=== PATIENT | female | born 1945 | race African-American/Black ===

== ENCOUNTER → 2018-03-21 | Outpatient (CLI) | payer OTHER ==
[2018-03-21 09:40] LABS: CALCIUM 9.6 mg/dL (8.5-10.1); CREATININE 1.3 mg/dL (0.6-1.0); POTASSIUM 4.1 mmol/L (3.5-5.1)
== END ==
LOC: CAT 08:41
PROVIDERS: Internal Medicine Cardiovascular Disease
DX: Z01.812 Encounter for preprocedural laboratory examination (principal); I71.01 Dissection of thoracic aorta; I71.4 Abdominal aortic aneurysm, without rupture

== ENCOUNTER 2018-09-04 05:59 | Inpatient (IN) | payer OTHER ==
[~2018-09-04] VITALS: Ht 162.6 cm; Wt 87.1 kg
[~2018-09-04 05:59] MED LIST: ANORO ELLIPTA1 EACH INH; ASPIR 8181 MG PO; ATORVASTATIN CA40 MG PO; CENTRUM SILVER1 EAC4 PO; IBUPROFEN 200200 M1 PO; IRON325 M1 PO; STOOL SOFTENER100 M1 PO; TOPROL XL25 MG PO; ZESTORETIC 10-1 EACH PO
[2018-09-29 10:19] LABS: ABSOLUTE NEUTROPHILS 5.3 thou/uL (1.4-8.2); EOSINOPHILS 2.1 % (0.0-3.0); HEMATOCRIT 34.6 % (37.0-47.0); HEMOGLOBIN 11.2 gm/dL (12.0-15.0); LYMPHOCYTES 24.4 % (24.0-44.0); MCH 26.1 pg (26.0-34.0); MCHC 32.3 g/dL (28.0-37.0); MCV 80.8 fL (80.0-100.0); MONOCYTES 5.6 % (1.0-8.0); PLATELET COUNT 265 thou/uL (150-400); POLYS 66.9 % (36.0-66.0); RBC 4.29 mil/uL (4.20-5.00); RDW 17.3 % (10.5-14.5); WBC 7.9 thou/uL (4.0-11.0)
[2018-09-29] MEDS ORDERED: METOPROLOL SUCC50 MG PO (10:22)
[2018-09-29 10:34] LABS: APTT 26.2 Seconds (24.5-32.8); PROTIME 9.9 Seconds (9.3-11.4)
[2018-09-29 10:36] LABS: ALBUMIN 3.1 g/dL (3.4-5.0); CALCIUM 9.5 mg/dL (8.5-10.1); CREATININE 1.1 mg/dL (0.6-1.0); POTASSIUM 3.5 mmol/L (3.5-5.1); TOTAL BILIRUBIN 0.3 mg/dL (<0.1-1.0); TOTAL PROTEIN 6.7 g/dL (6.4-8.2)
[2018-09-29 10:46] LABS: URINE CLARITY CLEAR; URINE COLOR YELLOW; URINE GLUCOSE-RANDOM* NEGATIVE (Negative); URINE KETONES NEGATIVE (Negative); URINE PROTEIN (DIPSTICK) NEGATIVE (Negative)
[2018-09-29 10:47] LABS: URINE BILIRUBIN NEGATIVE (Negative); URINE BLOOD NEGATIVE (Negative); URINE LEUKOCYTES-REFLEX NEGATIVE (Negative); URINE NITRITE-REFLEX NEGATIVE (Negative); URINE UROBILINOGEN 0.2 E.U./dl (0.2-1.0)
--- NOTE | 2018-09-29 13:22 | EKG ---
[address] [address] ELECTROCARDIOGRAM REPORT Name: JOHAN CERON Room #: [facility] [id number] Admission: Attend Phys: Billy Alston MD Discharge: Date of : 43 Report #: [id number] THIS REPORT FOR: //name// [facility] Test Date: 2018-09-29 Test Time: 10:08:30 Pat Name: JOHAN HOLM Department: Room: Gender: F Gas Engine Performance Engineer: SANA MICHAEL : 1945 Requested By: Billy Alston Order Number: [id number] MD: Neo Abdi Measurements Intervals [place] Rate: 77 P: 40 [place]: 178 QRS: 3 QRSD: 95 T: 5 QT: 410 QTc: 465 Interpretive Statements Sinus rhythm Borderline T abnormalities, anterior leads No previous ECG available for comparison Electronically Signed On 09-29-2018 13:22:14 MACHINE GUN MECHANIC by Neo Abdi [email or web address] <ELECTRONICALLY SIGNED> By: Neo Abdi MD 09/29/18 1322 1008 1008 Neo Abdi MD /TRACEY
[2018-10-06] VITALS (14 sets, daily range): BP systolic 118–151; BP diastolic 56–74
--- NOTE | 2018-10-06 21:00 | NUR ---
PT ADMITTED TO ICU FROM REC ROOM POST AAA STENT. AWAKE AND ALERT NEURO INTACT. RIGHT RADIAL ART LINE./ EPIDURAL CATH IN PLACE BUT NOT TO DRAIN. BILAT GROIN DRESSINGS DRY AND INTACT. CARDENE GTT TITRATE TO KEEP ART BP <160 WILL CONT TO MONITOR
[2018-10-07] VITALS (25 sets, daily range): BP systolic 99–145; BP diastolic 44–90
[2018-10-07 05:29] LABS: HEMATOCRIT 29.7 % (37.0-47.0); HEMOGLOBIN 9.7 gm/dL (12.0-15.0); MCH 26.3 pg (26.0-34.0); MCHC 32.7 g/dL (28.0-37.0); MCV 80.4 fL (80.0-100.0); RBC 3.69 mil/uL (4.20-5.00); RDW 17.5 % (10.5-14.5); WBC 10.1 thou/uL (4.0-11.0)
--- NOTE | 2018-10-07 06:00 | NUR ---
PT RESTED QUIETLY TONIGHT. PAIN MED GIVEN FOR LOWER BACK PAIN. CARDENE GTT AT 5 MG. LUNGS CLEAR. BATHED. PULSES INTACT. BILAT GROIN DRESSINGS INTACT. SINUS RHYTHM. WILL CONT TO MONITOR.
[2018-10-07 06:30] LABS: CALCIUM 8.5 mg/dL (8.5-10.1); CREATININE 1.1 mg/dL (0.6-1.0); POTASSIUM 3.6 mmol/L (3.5-5.1)
--- NOTE | 2018-10-07 11:35 | NUR ---
DR. GARCÍA PRESENT TO ROUND ON PT THIS AM. . CARDENE TITRATED OFF, RADIAL DAI DC'D, DOWN TO 1L/NC, LUNGS CLEAR, SCANT AMOUNT OF BREAKFAST CONSUMED, ADEQUATE URINE OUTPUT PER BRYAN. EPIDURAL INTACT, SENSATION AND MOTION PRESENT IN DOMINGA LOWER EXTREMITIES. PT PROGRESSING.
--- NOTE | 2018-10-07 12:15 | NUR ---
EPIDURAL REMOVED WITH STERILE TECHNIQUE BY ANESTHESIOLOGIST. PT C/O OF BACK DISCOMFORT FROM TAPE REMOVAL AND SINCE PT NEEDS TO LAY FLAT, FENTANYL 25 MCG IV GIVEN. O2 2L/NC SINCE SA02 91%. PULSES, SENSATION AND MOTION PRESENT IN DOMINGA LOWER EXTREMITIES. DAUGHTER PRESENT, CALLED TO INQUIRE ON PT STATUS AND BOTH UPDATED.
--- NOTE | 2018-10-07 16:49 | O ---
[facility] [place] [address] OPERATIVE REPORT Name: JOHAN CERON Room #: 246-P ADM IN M.R.#: [id number] Admission: 10/06/18 Attend Phys: Billy Alston MD Discharge: Date of : 43 Report #: [id number] THIS REPORT FOR: //name// CC: Billy Mooney DATE OF SERVICE: 10/06/2018 PREOPERATIVE DIAGNOSIS: Infrarenal abdominal aortic aneurysm. POSTOPERATIVE DIAGNOSIS: Infrarenal abdominal aortic aneurysm. OPERATION: Placement of endovascular stent graft for abdominal aortic aneurysm with intraoperative arteriograms. SURGEON: Billy Alston MD., and Todd Gould MD. ANESTHESIA: General. INDICATIONS: The patient is a 73-year-old with a large infrarenal abdominal aortic aneurysm. This measures 5 cm or more. The patient has a history of a previous thoracic stent graft placed approximately 2 years ago. FINDINGS AND TECHNIQUE: Because of the previous stent graft placement, we had asked anesthesia to place a lumbar drain for CSF drainage. Exposure was obtained through groin incisions. Because the patient had previous surgery, this was a reoperative exposure of the right and left femoral artery. 10,000 units of heparin were given on each side. An Amplatz needle was used to access the femoral artery and a guidewire was passed and the 5-Nicaraguan sheaths were placed. On the left side, the guidewire was placed into the aorta and a catheter was used for exchange, so we could place a Solo wire. Over the Solo wire, the femoral artery was controlled and a femoral arteriotomy was made, so that we could pass the 18-Nicaraguan delivery sheath. On the right side, a similar technique was used. Ultimately, a Solo wire was placed and over it the 16-Nicaraguan sheath was placed for the contralateral limb access. On the left side, the main body was passed. This was a 35 x 14.5 x 14 main component. Through the right side, a visceral catheter was used to gain access to the right renal artery and this allowed us to perform a selective renal arteriogram and identified the takeoff, so that we could precisely place the [facility] [address] [place] [address] OPERATIVE REPORT Name: JOHAN CERON Room #: 246-P [facility] IN .R.#: [id number] Admission: 10/06/18 Attend Phys: Billy Alston MD Discharge: Date of : 43 Report #: [id number] proximal end of the main component. The main component was opened and the contralateral limb was cannulated through the right side. Good position within the contralateral limb was ascertained with the pigtail catheter using the spin technique. The pigtail catheter was brought down into the component through the gate of the contralateral limb and a retrograde aortogram was done through the sheath to identify the hypogastric takeoff. Using this information, a 27 x 12 right iliac limb was selected and introduced through the 16-Nicaraguan sheath on the right and deployed in the contralateral limb at the appropriate spot. We were happy with the position both proximally and distally and therefore, a balloon was used to set this in position as well as to set the proximal landing zone. Through the left side, a similar procedure was performed using a retrograde flush through the introducing catheter to identify the hypogastric takeoff and a 20 x 9.5 health management consultant limb was selected and this was placed in position. When all of the components had been placed, the balloon was used to fully expand proximally, distally and at the graft overlap sites. Final arteriogram was taken to illustrate the stent, but this showed a small proximal type 1 endoleak. With this information, a 36 x 4.5 cuff was placed through the main component side, the left side, and then the balloon was deployed again to fully expand both the device, the main component and the new cuff. Once again, an arteriogram was taken to illustrate the entire graft and we were happy with both its position vis-a-vis the visceral vessels and with the fact that there were no type 1 or type 2 leaks. Satisfied with these positions, the dilators were placed back into the sheaths, the sheaths were removed and then the guidewires were removed. The arteriotomies were closed primarily with interrupted 6-0 Prolene. Flow was reestablished. Heparin, which had been given at the outset of the case, was reversed and hemostasis was ascertained. The wounds were closed in layers and the patient was taken to the recovery area in good condition with warm feet. In the recovery area, the patient was noted to have good neurologic function distally. All counts reported as correct. <ELECTRONICALLY SIGNED> By: Billy Alston MD 10/07/18 1649 1522 1547 Billy Alston MD /sonia
--- NOTE | 2018-10-07 18:30 | NUR ---
PT UP IN CHAIR, WELL TOLERATED. HAD EMESIS OF UNDIGESTED FOOD, ZOFRAN IV GIVEN FOR NAUSEA WITH RELIEF. REFUSED DINNER. PULLING 1,250 ON INCENTIVE SPIROMETER. AFTER GETTING UP TO CHAIR, SAO2 94-95%, PLACED ON ROOM AIR. EPIDURAL SITE UNCHANGED, CIRCULATION, SENSAATION AND MOVEMENT PRESENT IN DOMINGA LOWER EXTREMITIES. DOMINGA GROIN SITES DRY/INTACT. SON AND SPOUSE PRESENT, PROVIDING SUPPORT TO PT.
[2018-10-08] VITALS (17 sets, daily range): BP systolic 118–153; BP diastolic 49–70
--- NOTE | 2018-10-08 06:24 | NUR ---
END OF SHIFT NOTE: THIS RN ASSUMED CARE OF PT AROUND 1900. ASSESSMENTS PER DOCUMENTATION. PT C/O A LOT OF PAIN DESPITE MEDICATIONS. VSS, NO DISTRESS NOTED. IVF INFUSING WITHOUT DIFFICULTY. PT HAS BEEN ON ROOM AIR/1-2L NC FOR DESATTING WHILE ASLEEP 87-90% BUT ASYMPTOMATIC. ADEQUATE UOP AT 450ML FOR THIS SHIFT. BILATERAL GROIN INCISIONS WNL, CLEAN/DRY/INTACT, SKIN WARM, NO SWELLING NOTED. PULSES PALPABLE. PT DENIES SOA/TINGLING/NUMBNESS. PT DOES HAVE TRANSFER ORDERS FOR 2N.
[2018-10-08] MEDS ORDERED: PLAVIX 75 MG TA75 M1 PO (15:49)
[2018-10-08] MEDS ORDERED: NORCO 5-325 TA1 EACH PO (15:50)
--- NOTE | 2018-10-08 17:39 | NUR ---
Assumed care of patient at 0700. Patient awake, resting comfortably. Reports some nausea last night but not today. Rec'd one dose of IV pain meds in the morning, but pain is tolerable the rest of the day on PO. Seen by cardiac ASSOCIATE PRINCIPAL and CV surg MD. Fleming out, patient able to void. Weaned off oxygen. Up to chair for meals and ambulated in halls. Ok'd for discharge. Education done bedside with son and spouse present. Prescription for oral hydrocodone given. Reviewed instructions for follow up with Dr. Alston and CTA with Dr. Dougherty. Discharge by private vehicle. PIV and tele removed.
== END 2018-10-08 17:05 | disposition home or self-care (01) | DRG 269 ==
LOC: PRE 05:59 → ICU 10-06 05:32 → TBA 10-06 05:32 → PRE 10-06 05:34 → ICU 10-06 21:14
PROVIDERS: ADMIT Surgery Vascular Surgery
DX: I71.4 Abdominal aortic aneurysm, without rupture (principal); I10 Essential (primary) hypertension; E78.5 Hyperlipidemia, unspecified; I25.10 Atherosclerotic heart disease of native coronary artery without angina pectoris; J44.9 Chronic obstructive pulmonary disease, unspecified; F17.210 Nicotine dependence, cigarettes, uncomplicated; Z95.5 Presence of coronary angioplasty implant and graft; Z79.899 Other long term (current) drug therapy; Z88.5 Allergy status to narcotic agent; Z88.0 Allergy status to penicillin; Z88.1 Allergy status to other antibiotic agents; Z88.2 Allergy status to sulfonamides; Z88.8 Allergy status to other drugs, medicaments and biological substances
CPT/HCPCS: 10078; 47375; 48888; 50010; 50101; 50386; 50455; 51078; 51751; 54118; 56524; 56526; 56531; 56668; 56760; 57093; 62110; 62900; 65020; 65040; 65085; 70005; 83006

== ENCOUNTER → 2018-10-17 | Outpatient (CLI) | payer OTHER ==
[~2018-10-17] MED LIST changes: +METOPROLOL SUCC50 MG PO; +NORCO 5-325 TA1 EACH PO; +PLAVIX 75 MG TA75 M1 PO
[2018-10-17 12:09] LABS: CREATININE 1.1 mg/dL (0.6-1.0)
== END ==
LOC: CAT 08:51
PROVIDERS: Nuclear Medicine Nuclear Cardiology
DX: Z01.812 Encounter for preprocedural laboratory examination (principal); I71.4 Abdominal aortic aneurysm, without rupture; I71.2 Thoracic aortic aneurysm, without rupture; N28.1 Cyst of kidney, acquired; I70.8 Atherosclerosis of other arteries; E27.9 Disorder of adrenal gland, unspecified; M47.816 Spondylosis without myelopathy or radiculopathy, lumbar region; Z95.828 Presence of other vascular implants and grafts

== ENCOUNTER → 2019-05-21 | Outpatient (CLI) | payer OTHER | LOC: CAT 09:16 | PROVIDERS: Nuclear Medicine Nuclear Cardiology | DX: I71.4 Abdominal aortic aneurysm, without rupture (principal); I71.2 Thoracic aortic aneurysm, without rupture; Z95.828 Presence of other vascular implants and grafts ==

== ENCOUNTER → 2019-05-27 | Outpatient (CLI) | payer OTHER | LOC: CAT 10:51 | DX: I71.4 Abdominal aortic aneurysm, without rupture (principal); I71.2 Thoracic aortic aneurysm, without rupture; I25.10 Atherosclerotic heart disease of native coronary artery without angina pectoris; J98.11 Atelectasis; M47.814 Spondylosis without myelopathy or radiculopathy, thoracic region; M47.816 Spondylosis without myelopathy or radiculopathy, lumbar region; N28.9 Disorder of kidney and ureter, unspecified; Z85.828 Personal history of other malignant neoplasm of skin ==

== ENCOUNTER → 2020-06-07 | Outpatient (CLI) | payer OTHER | LOC: SJCVCIMAG 11:14 | PROVIDERS: ATTEND Nuclear Medicine Nuclear Cardiology | DX: I65.23 Occlusion and stenosis of bilateral carotid arteries (principal); I25.10 Atherosclerotic heart disease of native coronary artery without angina pectoris; I10 Essential (primary) hypertension; I73.9 Peripheral vascular disease, unspecified; I71.2 Thoracic aortic aneurysm, without rupture; E78.00 Pure hypercholesterolemia, unspecified; J44.9 Chronic obstructive pulmonary disease, unspecified; F17.200 Nicotine dependence, unspecified, uncomplicated; Z79.899 Other long term (current) drug therapy; Z85.828 Personal history of other malignant neoplasm of skin ==

== ENCOUNTER → 2020-06-14 | Outpatient (CLI) | payer OTHER ==
[2020-06-14 13:22] LABS: ANION GAP 7 mmol/L (7-16); BUN 13 mg/dL (7-18); CALCIUM 9.3 mg/dL (8.5-10.1); CHLORIDE 106 mmol/L (98-107); CO2 31 mmol/L (21-32); GLUCOSE 93 mg/dL (74-106); POTASSIUM 3.7 mmol/L (3.5-5.1); SODIUM 144 mmol/L (136-145)
[2020-06-14 13:30] LABS: ALBUMIN 2.9 g/dL (3.4-5.0); CHOLESTEROL 143 mg/dL (<200); HDL CHOLESTEROL 45 mg/dL (>40); LDL CHOLESTEROL 77 mg/dL (<100); SGOT 12 U/L (15-37); SGPT 15 U/L (30-65); TC:HDL 3.2 Ratio (Not establshd); TOTAL BILIRUBIN 0.4 mg/dL (0.2-1.0); TOTAL PROTEIN 7.1 g/dL (6.4-8.2); TRIGLYCERIDE 107 mg/dL (<150); VLDL 21 mg/dL (<40)
== END | disposition home or self-care (01) ==
LOC: CAT 08:43
PROVIDERS: Internal Medicine Cardiovascular Disease; ATTEND Nuclear Medicine Nuclear Cardiology
DX: Z45.2 Encounter for adjustment and management of vascular access device (principal); I71.4 Abdominal aortic aneurysm, without rupture; I71.2 Thoracic aortic aneurysm, without rupture; Z98.890 Other specified postprocedural states; Z79.899 Other long term (current) drug therapy; Z88.8 Allergy status to other drugs, medicaments and biological substances

== ENCOUNTER → 2020-12-14 | Outpatient (CLI) | payer OTHER | LOC: SJCVCIMAG 09:04 | PROVIDERS: ATTEND Internal Medicine Cardiovascular Disease | DX: I35.1 Nonrheumatic aortic (valve) insufficiency (principal); I11.9 Hypertensive heart disease without heart failure; J44.9 Chronic obstructive pulmonary disease, unspecified; I71.4 Abdominal aortic aneurysm, without rupture; E78.5 Hyperlipidemia, unspecified; I25.10 Atherosclerotic heart disease of native coronary artery without angina pectoris; I73.9 Peripheral vascular disease, unspecified; E78.00 Pure hypercholesterolemia, unspecified; M19.90 Unspecified osteoarthritis, unspecified site; R60.0 Localized edema; R06.00 Dyspnea, unspecified; F17.200 Nicotine dependence, unspecified, uncomplicated; Z88.5 Allergy status to narcotic agent; Z88.1 Allergy status to other antibiotic agents; Z88.0 Allergy status to penicillin; Z79.82 Long term (current) use of aspirin; Z79.899 Other long term (current) drug therapy ==

== ENCOUNTER → 2021-01-11 | Outpatient (CLI) | payer OTHER | LOC: SJCVC 12:50 | PROVIDERS: ATTEND Internal Medicine Cardiovascular Disease | DX: I10 Essential (primary) hypertension (principal); E78.5 Hyperlipidemia, unspecified; J44.9 Chronic obstructive pulmonary disease, unspecified; I25.10 Atherosclerotic heart disease of native coronary artery without angina pectoris; E78.00 Pure hypercholesterolemia, unspecified; I73.9 Peripheral vascular disease, unspecified; F17.200 Nicotine dependence, unspecified, uncomplicated; Z88.5 Allergy status to narcotic agent; Z88.0 Allergy status to penicillin; Z88.8 Allergy status to other drugs, medicaments and biological substances; Z88.1 Allergy status to other antibiotic agents; Z95.828 Presence of other vascular implants and grafts; Z98.61 Coronary angioplasty status; Z79.01 Long term (current) use of anticoagulants; Z79.899 Other long term (current) drug therapy ==

== ENCOUNTER 2021-01-30 04:29 | Inpatient (IN) | payer OTHER ==
[2021-01-30] VITALS (8 sets, daily range): BP systolic 119–153; BP diastolic 52–88
[~2021-01-30] VITALS: Ht 160 cm; Wt 85.3 kg
[2021-01-30 05:10] LABS: ANION GAP 13 mmol/L (7-16); BUN 12 mg/dL (7-18); CALCIUM 8.8 mg/dL (8.5-10.1); CHLORIDE 110 mmol/L (98-107); CO2 22 mmol/L (21-32); CREATININE 1.1 mg/dL (0.6-1.0); GLUCOSE 190 mg/dL (74-106); POTASSIUM 4.2 mmol/L (3.5-5.1); SODIUM 145 mmol/L (136-145)
[2021-01-30 05:20] LABS: ALBUMIN 1.7 g/dL (3.4-5.0); DIRECT BILIRUBIN 0.1 mg/dL (<0.1-0.2); SGOT 15 U/L (15-37); SGPT 16 U/L (14-59); TOTAL BILIRUBIN 0.6 mg/dL (0.2-1.0); TOTAL PROTEIN 6.1 g/dL (6.4-8.2); TROPONIN-I <0.06 ng/mL (<0.06)
[2021-01-30 06:34] LABS: ABSOLUTE NEUTROPHILS 8.3 thou/uL (1.4-8.2); BASOPHILS 0.5 % (0.0-2.0); EOSINOPHILS 0.2 % (0.0-3.0); HEMATOCRIT 27.5 % (37.0-47.0); HEMOGLOBIN 8.8 gm/dL (12.0-15.0); LYMPHOCYTES 11.6 % (24.0-44.0); MCH 25.2 pg (26.0-34.0); MCV 78.8 fL (80.0-100.0); MONOCYTES 9.6 % (1.0-8.0); PLATELET COUNT 435 thou/uL (150-400); POLYS 78.1 % (36.0-66.0); RBC 3.49 mil/uL (4.20-5.00); RDW 20.9 % (10.5-14.5); WBC 10.6 thou/uL (4.0-11.0)
--- NOTE | 2021-01-30 07:53 | EKG ---
[address] [address] ELECTROCARDIOGRAM REPORT Name: JOHAN JAVED Room #: 170-1 ADM IN M.R.#: [id number] Admission: 01/30/21 Attend Phys: Mehul Norwood MD Discharge: Date of : 43 Report #: [id number] [facility] ED Test Date: 2021-01-30 Test Time: 04:36:29 Pat Name: JOHAN JAVED Department: Room: 170 Gender: F Operations Professional: JCESTEBAN : 1945 Requested By: Ann Kirby Order Number: [id number] MD: Renato Alcantara Measurements Intervals [place] Rate: 107 P: 19 NV: 154 QRS: 6 QRSD: 81 T: 4 QT: 322 QTc: 430 Interpretive Statements Sinus tachycardia Sinus pause Compared to ECG 09/29/2018 10:08:30 Sinus pause or arrest now present Early repolarization now present Possible ischemia now present Sinus rhythm no longer present T-wave abnormality no longer present Electronically Signed On 01-30-2021 7:53:01 CDT by Renato Alcantara [email or web address] <ELECTRONICALLY SIGNED> By: Renato Alcantara MD, FACC 01/30/21 0753 0436 0436 Renato Alcantara MD, [facility] /EPI
[2021-01-30 08:02] LABS: BE(vivo) -2.5 mmol/L (-2 to +3); HCO3 20.2 mmol/L (22.0-26.0); PCO2 27.6 mmHg (35.0-45.0); PO2 65.9 mmHg (80.0-100.0); pH 7.482 (7.360-7.450); sO2 94.7 % (92.0-98.0)
[2021-01-30 10:01] LABS: APTT 26.3 Seconds (24.5-32.8); INR 1.11
[2021-01-30 15:03] LABS: % SATURATION 8 % (20-39); IRON 13 ug/dL (50-170); TIBC 163 ug/dL (250-450)
[2021-01-30 15:13] LABS: FOLIC ACID 3.7 ng/mL (8.6-58.9)
[2021-01-30 16:24] LABS: COLOR YELLOW; SOURCE LEFT CHEST FLUID; TOTAL VOLUME 60 mL
[2021-01-30 16:25] LABS: CLARITY CLOUDY
[2021-01-30 16:37] LABS: BF NUCLEATED CELLS 1484 /mm3; BF RBC 1389 /mm3
--- NOTE | 2021-01-30 17:11 | NUR ---
PT CARE ASSUMED AT 1100. ASSESSMENTS CHARTED. MEDICATIONS CHARTED. LAC IV. LCHEST IV. SINUS RHYTHM. BSC-OCCULT STOOL NEEDED. US FOR LT THORACENTESIS, 700 ML OFF FLUID REMOVED. AWAITING MED ORDERS.
[2021-01-30 20:28] LABS: BF MACROPHAGE 3 %; BF NEUTROPHILS 43 %
[2021-01-31] VITALS (8 sets, daily range): BP systolic 102–141; BP diastolic 65–82
--- NOTE | 2021-01-31 03:42 | NUR ---
Medicated for pain with good relief. Left side thoracentesis site with bandaid clean,dry and intact. Maintaining O2 sat in the upper 90's on 2L/NC. She verbalized being short of breath with exertion. ST with activities and SR at rest. Bed alarm on and SCD's in place.
[2021-01-31 04:01] LABS: HEMATOCRIT 25.8 % (37.0-47.0); HEMOGLOBIN 8.2 gm/dL (12.0-15.0); MCH 24.7 pg (26.0-34.0); MCHC 31.7 g/dL (28.0-37.0); RBC 3.31 mil/uL (4.20-5.00); RDW 20.3 % (10.5-14.5); WBC 10.5 thou/uL (4.0-11.0)
[2021-01-31 04:39] LABS: ALBUMIN 1.5 g/dL (3.4-5.0); CALCIUM 8.7 mg/dL (8.5-10.1); CREATININE 1.1 mg/dL (0.6-1.0); POTASSIUM 3.4 mmol/L (3.5-5.1); TOTAL BILIRUBIN 0.6 mg/dL (0.2-1.0); TOTAL PROTEIN 6.2 g/dL (6.4-8.2)
[2021-01-31 07:24] LABS: BE(vivo) 0.2 mmol/L (-2 to +3); HCO3 23.7 mmol/L (22.0-26.0); PCO2 33.9 mmHg (35.0-45.0); PO2 71.8 mmHg (80.0-100.0); pH 7.463 (7.360-7.450); sO2 95.4 % (92.0-98.0)
--- NOTE | 2021-01-31 10:58 | NUR ---
INITIAL ASSESSMENT: SW reviewed chart and spoke with nursing and attending physician. Pt was admitted from home due to dyspnea. Pt had thoracentesis yesterday per pulm. Pt is on IV lasix. Discharge is anticipated in 1-2 days. SW met with pt at bedside. Introduced role of SW. Pt is alert/orientated x 4. Pt reports she lives at home with her . Prior to admission, pt was independent with ADLs. Pt states she has a cane to use if needed. Pt lives in a one-level house. No hx of HH or post-acute placement. Pt's PCP is Dr. Inga Lennon in [place]. Pt states she was recently at [facility]. SW discussed HH or post-acute placement if recommended. Pt states she will not need anything when discharged. SW is following to assist as needed with discharge planning.
--- NOTE | 2021-01-31 13:46 | NUR ---
RD consult received for malnutrition. Admit with bilateral pleural effusions s/p thoracentesis with 700ml fluid removed. pt with new dx diabetes which she states was at previous hospital she was at. Went home and stated did not know how to administer insulin. Very somulent and did not provide much other information other than "not hungry". Was able to obtain some lunch preferences for today. Folate levels depleted 3.7. Unsure of wt loss. Will start glucerna shakes bid and address any further nutrition education needs at more appropriate time. Physician has indicated protein calorie malnutrition: RD defer until more information available.
--- NOTE | 2021-01-31 15:10 | 2DMMODE ---
[facility] [place] [address] 2 D/M-MODE ECHOCARDIOGRAM Name: JOHAN JAVED Room #: 209-P ADM IN M.R.#: [id number] Admission: 01/30/21 Attend Phys: Mehul Norwood MD Discharge: Date of : 43 Report #: [id number] THIS REPORT FOR: cc: Inga Lennon MD, Ghazal A. MD Park, Jin S. MD ~ APPROVED REPORT Study performed: 01/31/2021 13:40:42 EXAM: Comprehensive 2D, Doppler, and color-flow Echocardiogram Patient Location: Bedside Room #: 209 Status: routine BSA: 1.85 HR: 107 bpm BP: 120/68 mmHg Rhythm: Tachycardia Other Information Study Quality: Adequate Indications Respiratory failure. Hx: CAD, stents, Afib, COPD, PVD, HTN, HLP. 2D Dimensions RVDd: 28.12 mm IVSd: 12.20 (7-11mm) LVOT Diam: 20.61 (18-24mm) LVDd: 38.77 mm PWd: 12.29 (7-11mm) Ascending Ao: 32.87 (22-36mm) LVDs: 28.14 (25-40mm) Aortic Root: 33.83 mm Volumes Left Atrial Volume (Systole) Single Plane 4CH: 26.21 mL Single Plane 2CH: 33.57 mL LA ESV Index: 17.00 mL/m2 Aortic Valve AoV Peak Colton.: 1.81 m/s AO Peak Gr.: 13.10 mmHg LVOT Max P.60 mmHg LVOT Max V: 1.07 m/s CHARLEEN Vmax: 1.98 cm2 [facility] [address] [place] [address] 2 D/M-MODE ECHOCARDIOGRAM Name: JOHAN JAVED Room #: 209-[facility] IN [facility].#: [id number] Admission: 01/30/21 Attend Phys: Mehul Norwood MD Discharge: Date of : 43 Report #: [id number] Pulmonary Valve PV Peak Colton.: 1.01 m/s PV Peak Gr.: 4.06 mmHg Tricuspid Valve RAP Estimate: 5.00 mmHg Left Ventricle The left ventricle is normal size. There is normal LV segmental wall motion. Mild concentric left ventricular hypertrophy. Left ventricular systolic function is normal. LVEF is 60-65%. This study is not technically sufficient to allow evaluation of the LV diastolic function. Right Ventricle The right ventricle is normal size. The right ventricular systolic function is normal. Atria The left atrium size is normal. The right atrium size is normal. Aortic Valve The aortic valve is normal in structure; calcified. Mild aortic regurgitation. There is no aortic valvular stenosis. Mitral Valve The mitral valve is normal in structure. Mild mitral annular calcification. There is no mitral valve regurgitation noted. No evidence of mitral valve stenosis. Tricuspid Valve The tricuspid valve is normal in structure. Trace tricuspid regurgitation. Unable to assess PA pressure. Pulmonic Valve The pulmonary valve is normal in structure. There is no pulmonic valvular regurgitation. Great Vessels The aortic root is normal in size. The ascending aorta is normal in size. IVC is normal in size and collapses >50% with inspiration. Pericardium Small pericardial effusion. [facility] [address] [place] [address] 2 D/M-MODE ECHOCARDIOGRAM Name: JOHAN JAVED Room #: 209-P [facility] IN M.R.#: [id number] Admission: 01/30/21 Attend Phys: Mehul Norwood MD Discharge: Date of : 43 Report #: [id number] <Conclusion> The left ventricle is normal size. Mild concentric left ventricular hypertrophy. Left ventricular systolic function is normal. The right ventricle is normal size. The left atrium size is normal. Mild aortic regurgitation. Mild mitral annular calcification. There is no mitral valve regurgitation noted. <ELECTRONICALLY SIGNED> By: Thor Sanches MD 01/31/21 1509 1509 1509 Thor Sanches MD /INF
--- NOTE | 2021-01-31 17:12 | NUR ---
PT CARE ASSUMED AT 0700. ASSESSMENTS CHARTED. MEDICATIONS CHARTED. LAC IV. LT CHEST IV. SINUS TACHYCARDIA. BSC, OCCULT STOOL NEEDED. FREQUENT URINATION, LASIX GIVEN. DAY TWO; LT THORACENTESIS, 700 ML. ACHS. HYDROCODONE Q6PRN, PT IN PAIN IN LT FLANK, 07/02. HR INCREASES WHEN PT USES BSC.
[2021-02-01 02:40] LABS: HEMATOCRIT 28.5 % (37.0-47.0); MCH 24.8 pg (26.0-34.0); MCHC 31.8 g/dL (28.0-37.0); RBC 3.65 mil/uL (4.20-5.00); RDW 20.4 % (10.5-14.5); WBC 7.7 thou/uL (4.0-11.0)
[2021-02-01 02:46] LABS: CALCIUM 8.6 mg/dL (8.5-10.1); CREATININE 1.3 mg/dL (0.6-1.0); POTASSIUM 4.1 mmol/L (3.5-5.1)
--- NOTE | 2021-02-01 03:58 | NUR ---
ASSESSMENTS CHARTED, MEDS CHARTED GIVEN. PATIENT RESTING IN BED DURING SHIFT. PATIENT IS SINUS TACH WITH PAC'S OR AFIB ON TELEMETRY DURING SHIFT. PATIENT ON 2 LITERS NC DURING SHIFT. PATIENT DID NOT REQUIRE COVERAGE ON ACCU CHECK AT HS. DENIED PAIN DURING SHIFT. PATIENT BREATHING EASIER POST THORACENTESIS. PATIENT HAD RUN OF SINUS TACH AROUND 200 BPM WHILE RESTING IN BED. FALL PRECAUTIONS IN PLACE DURING SHIFT.
[2021-02-01 04:45] VITALS: BP 115/60
[2021-02-01 07:28] VITALS: BP 139/63
[2021-02-01 11:23] VITALS: BP 97/53
[2021-02-01 15:33] VITALS: BP 104/51
--- NOTE | 2021-02-01 16:23 | NUR ---
therapy evals in process who recommend HH at [facility] Sp with patient she continues to have oxygen on during hosp stay and she reports she does not use at home. Discussed hh with patient she reports she has used in past but cannot recall agency. Patient has no prefernce for home health care. Faxed referrel form to [facility]. Requested liason with [facility] see patient in am. Verified address, phone numner and PCP on face sheet. [facility] following.
--- NOTE | 2021-02-01 16:36 | NUR ---
ASSUMED CARE SHIFT CHANGE. ASSESSMENT CHARTED.MEDS. VSS. C/O PAIN MANAGED WITH PO PAIN MEDS. PT UP TO BSC BRANDON WELL. APPETITE LESS THAN ADEQUATE. PHYS THERAPY ATTEMPT TO WORK WITH PT, REFUSED. EDUCATED ON IMPORTANCE OF ACTIVITY TO GET BETTER, PT STILL REFUSED. PT SEEMS TO HAVE LITTLE MOTIVATION. C/O CONSTIPATION PHYSICIAN NOTIFED, ORDERS RECEIVED. CONTINUING POC. WILL PASS REPORT TO NOC RN.
[2021-02-01 19:20] VITALS: BP 108/50
--- NOTE | 2021-02-02 00:26 | NUR ---
3101 NO COMPLAINTS OF PAIN THIS SHIFT. UP TO [facility] NEEDED. REPORT GIVEN TO DARRYL HOOD.
[2021-02-02 03:38] VITALS: BP 117/50
--- NOTE | 2021-02-02 06:31 | NUR ---
PATIENTS CARE WAS ASSUMED AT 2300. PATIENT WAS ASSESSED AND MEDS WERE PASSED. PATIENT CONTINUES TO BE ON 2L NC. PATIENT CONTINUES TO BE SHORT OF AIR WITH ACTIVITY. PATIENTS ONLY C/O NOT ENOUGH FOOD. PATIENT REQUESTING FOOD THIS MORNING. PATIENT REQUESTED TWO ICE CREAMS. ROUNDS WERE DONE. PATIENT HAD A RESTFUL NIGHT. THE BED IS IN A LOW AND LOCKED POSITION
[2021-02-02 07:34] VITALS: BP 132/64
[2021-02-02 09:48] LABS: SOURCE PLEURAL
[2021-02-02 11:18] VITALS: BP 130/69
[2021-02-02 15:06] VITALS: BP 113/48
[2021-02-02 16:06] LABS: BODY FLUID ALBUMIN 1.2 g/dL (Not Estab.); BODY FLUID AMYLASE 5 U/L (()); BODY FLUID CREATININE 0.9 mg/dL (Not Estab.); BODY FLUID GLUCOSE 171 mg/dL (()); BODY FLUID LDH 240 IU/L (()); BODY FLUID PROTEIN 2.6 g/dL (())
--- NOTE | 2021-02-02 16:06 | PATH ---
[facility] [address] [place] [address] PATHOLOGY RPT PROCEDURE Name: JOHAN JAVED Room #: 209-P ADM IN ..#: [id number] Admission: 01/30/21 Date of : 43 Discharge: Report #: [id number] Path Case #: [id number] Note [facility] Accession Number: [id number] TESTS RESULT FLAG UNITS REF RANGE LAB Clinician Provided Cytology Information No. of containers..01 Other (Miscellaneous) Source: PLEURAL FLUID DIAGNOSIS: 02 PLEURAL FLUID NEGATIVE FOR MALIGNANT CELLS. MESOTHELIAL CELLS ARE PRESENT. THIS INTERPRETATION INCLUDES EVALUATION OF A CELL BLOCK. Signed out by: 02 Valdemar Sood MD, Pathologist NPI- [id number] Performed by: 01 Paula Richards, Miscellaneous Machine Operator ([facility]) Gross description: 01 15ML, CLDY YELLOW, 1 TP /LCS 01/31/20212019 [facility] FLAG LEGEND: L-Low Normal,H-High Normal,LL-Alert Low,HH-Alert High <-Panic Low,>-Panic High,A-Abnormal,AA-Critical Abnormal Performed at: [address] [place] [address] Julián Sinclair MD, [address] [place] [phone] Valdemar Sood MD, Specimen Comment: A courtesy copy of this report has been sent to [phone], [phone] Specimen Comment: [phone] Specimen Comment: Report sent to / DR JOSEPH Performed at: [address], [place], [place] [id number] MD Julián Sinclair MD Phone: [phone]
--- NOTE | 2021-02-02 19:35 | NUR ---
ASSESSMENT CHARTED - MEDS PER MAR - ACCUCHECKS CHARTED - COVERED PER SSI. BRANDON DIET AND FLUIDS. UP TO THE [facility] WITH STANDBY ASSIST - STOOL SNET TO THE LAB - NEG HEAM. LASIX CHANGED TO DEMEDEX. PT HAD EXERCISE OXIMETERY COMPLETED TODAY - DOES NOT REQUIRE 02. PT SEEN BY HOME HEALTH RN THIS AM - PT STATED THAT SHE WOULD ALLOW HOME HEALTH TO SEE HER. CONSULT TO CLIENT ENGAGEMENT SPECIALIST. IN TO SEE PATIENT. PT NOT VERY TALKATIVE AT TIME - CAN BE RAATHER VAGUE IN ANSWERS TO QUESTIONS. APPEARS TO BE RESTING AT THE PRESENT TIME. NO CO'S.
[2021-02-02 19:55] VITALS: BP 106/48
[2021-02-03 03:30] VITALS: BP 137/69
[2021-02-03 04:21] LABS: CALCIUM 8.6 mg/dL (8.5-10.1); CREATININE 1.3 mg/dL (0.6-1.0); POTASSIUM 4.3 mmol/L (3.5-5.1)
--- NOTE | 2021-02-03 08:30 | NUR ---
PT REFUSES AM ASSESSMENT BY THIS RN. NOTE REASSESSMENT INTERVENTION
--- NOTE | 2021-02-03 08:53 | NUR ---
Followup: eating better 50-70% of meals and receptive to glucerna shakes. BG levels very high 222-302 likely aggravated by steroids. Basic nutrition education provided for new dx diabetes however pt with minimal participation, not showing interest at this time. Keeps room darkened.
[2021-02-03] MEDS ORDERED: DEMADEX20 MG PO (09:38)
[2021-02-03 11:25] VITALS: BP 137/64
--- NOTE | 2021-02-03 11:26 | NUR ---
Pt dcing home today. orders noted and the [facility] liason is here and confirmed they can accept. No other needs noted.
[2021-02-03 11:47] VITALS: BP 137/64
--- NOTE | 2021-02-03 12:47 | NUR ---
ASSUMED CARE SHIFT CHANGE. PT DENIED AM ASSESSMENT, VITALS AND BLOOD SUGAR. STATES READY TO GO HOME.DENIES PAIN. PT REMOVED IV AND TELE. DC DISCUSSED WITH PT COMMUNICATING UNDERSTANDING. PT LEFT UNIT WITH ALL BELONGINGS ACCOMPANIED BY SPOUSE.
== END 2021-02-03 12:50 | disposition home health service (06) | DRG 189 ==
LOC: ER 04:29 → 2N 07:44 → EROBS 07:44 → 2N 10:58
PROVIDERS: Emergency Medicine; Hospitalist; Internal Medicine Pulmonary Disease; Nurse Practitioner; ADMIT Internal Medicine; ATTEND Internal Medicine
PROC: 0W9B3ZZ Drainage of Left Pleural Cavity, Percutaneous Approach (ICD-10-PCS; principal; 2021-01-30)
DX: J96.01 Acute respiratory failure with hypoxia (principal); E43 Unspecified severe protein-calorie malnutrition; J91.8 Pleural effusion in other conditions classified elsewhere; I31.3 Pericardial effusion (noninflammatory); R62.7 Adult failure to thrive; I25.10 Atherosclerotic heart disease of native coronary artery without angina pectoris; J44.9 Chronic obstructive pulmonary disease, unspecified; I10 Essential (primary) hypertension; R53.81 Other malaise; E87.6 Hypokalemia; I71.4 Abdominal aortic aneurysm, without rupture; K59.00 Constipation, unspecified; D50.9 Iron deficiency anemia, unspecified; E78.5 Hyperlipidemia, unspecified; I48.91 Unspecified atrial fibrillation; I73.9 Peripheral vascular disease, unspecified; Z95.820 Peripheral vascular angioplasty status with implants and grafts; Z90.49 Acquired absence of other specified parts of digestive tract; Z95.5 Presence of coronary angioplasty implant and graft; Z85.038 Personal history of other malignant neoplasm of large intestine; Z92.21 Personal history of antineoplastic chemotherapy; Z92.3 Personal history of irradiation; Z88.6 Allergy status to analgesic agent; Z88.0 Allergy status to penicillin; Z88.2 Allergy status to sulfonamides; Z88.8 Allergy status to other drugs, medicaments and biological substances; Z82.49 Family history of ischemic heart disease and other diseases of the circulatory system; Z87.891 Personal history of nicotine dependence
CPT/HCPCS: 10081

== ENCOUNTER 2021-02-07 14:55 | Inpatient (IN) | payer OTHER ==
[~2021-02-07] VITALS: Ht 160 cm; Wt 80.6 kg
[~2021-02-07 14:55] MED LIST changes: +DEMADEX20 MG PO
[2021-02-07 15:13] VITALS: BP 101/62
[2021-02-07 15:39] LABS: EOSINOPHILS 2.1 % (0.0-3.0); HEMATOCRIT 32.8 % (37.0-47.0); HEMOGLOBIN 10.8 gm/dL (12.0-15.0); LYMPHOCYTES 34.6 % (24.0-44.0); MCH 25.4 pg (26.0-34.0); MCHC 32.8 g/dL (28.0-37.0); MCV 77.4 fL (80.0-100.0); MONOCYTES 6.3 % (1.0-8.0); PLATELET COUNT 350 thou/uL (150-400); RBC 4.24 mil/uL (4.20-5.00); RDW 21.3 % (10.5-14.5); WBC 8.9 thou/uL (4.0-11.0)
[2021-02-07 15:46] LABS: ANION GAP 8 mmol/L (7-16); BUN 32 mg/dL (7-18); CALCIUM 9.3 mg/dL (8.5-10.1); CHLORIDE 97 mmol/L (98-107); CO2 30 mmol/L (21-32); GLUCOSE 260 mg/dL (74-106); POTASSIUM 3.5 mmol/L (3.5-5.1); SODIUM 135 mmol/L (136-145)
[2021-02-07 15:48] LABS: URINE BILIRUBIN NEGATIVE (Negative); URINE BLOOD NEGATIVE (Negative); URINE CLARITY CLEAR; URINE COLOR YELLOW; URINE GLUCOSE-RANDOM* NEGATIVE (Negative); URINE KETONES NEGATIVE (Negative); URINE LEUKOCYTES-REFLEX NEGATIVE (Negative); URINE NITRITE-REFLEX NEGATIVE (Negative); URINE PROTEIN (DIPSTICK) NEGATIVE (Negative); URINE UROBILINOGEN 0.2 E.U./dl (0.2-1.0)
[2021-02-07 15:56] LABS: ALBUMIN 2.5 g/dL (3.4-5.0); SGOT 12 U/L (15-37); SGPT 17 U/L (14-59); TOTAL BILIRUBIN 0.5 mg/dL (0.2-1.0); TOTAL PROTEIN 7.5 g/dL (6.4-8.2); TROPONIN-I <0.06 ng/mL (<0.06)
[2021-02-07 20:29] VITALS: BP 90/66
[2021-02-07 21:28] VITALS: BP 91/52
[2021-02-08] VITALS (7 sets, daily range): BP systolic 85–115; BP diastolic 43–70
--- NOTE | 2021-02-08 03:20 | NUR ---
Arrived from ER around 2049. SBP in the 90's upon arrival on the floor. IV fluids started. MN SBP in the 80's with MAP in the 60's. VOLCANOLOGY TEACHER notified , IVF increased from 75 ml/hr to 125 ml/hr. Pt. denies any symptoms but would like to find out what's going on. Tolerating room air well and denies being short of breath. Denies any pain , afebrile. Up with SBA to commode to void.
[2021-02-08 06:08] LABS: ABSOLUTE NEUTROPHILS 3.5 thou/uL (1.4-8.2); BASOPHILS 0.9 % (0.0-2.0); EOSINOPHILS 4.1 % (0.0-3.0); HEMATOCRIT 27.4 % (37.0-47.0); LYMPHOCYTES 35.7 % (24.0-44.0); MCH 24.9 pg (26.0-34.0); MCHC 31.3 g/dL (28.0-37.0); MCV 79.6 fL (80.0-100.0); MONOCYTES 7.7 % (1.0-8.0); POLYS 51.6 % (36.0-66.0); RBC 3.45 mil/uL (4.20-5.00); RDW 21.1 % (10.5-14.5); WBC 6.8 thou/uL (4.0-11.0)
[2021-02-08 06:19] LABS: HEMOGLOBIN 8.6 gm/dL (12.0-15.0); PLATELET COUNT 256 thou/uL (150-400)
[2021-02-08 06:30] LABS: CALCIUM 8.4 mg/dL (8.5-10.1); CREATININE 1.6 mg/dL (0.6-1.0); POTASSIUM 3.4 mmol/L (3.5-5.1)
--- NOTE | 2021-02-08 08:42 | EKG ---
[address] [place] [facility] [place] [address] ELECTROCARDIOGRAM REPORT Name: JOHAN JAVED Room #: 359-P ADM IN M.R.#: [id number] Admission: 02/07/21 Attend Phys: Michelle Oropeza MD Discharge: Date of : 43 Report #: [id number] [facility] ED Test Date: 2021-02-07 Test Time: 15:11:01 Pat Name: JOHAN JAVED Department: Room: 359 Gender: F Web Development Director: : 1945 Requested By: Todd Hu Order Number: [id number] MD: Renato Alcantara Measurements Intervals [place] Rate: 114 P: 15 FL: 156 QRS: 5 QRSD: 85 T: 156 QT: 320 QTc: 441 Interpretive Statements Sinus tachycardia Probable left atrial enlargement Abnormal T, consider ischemia, lateral leads Compared to ECG 01/30/2021 04:36:29 T-wave abnormality now present Possible ischemia now present Sinus pause or arrest no longer present Electronically Signed On 02-08-2021 8:42:12 CDT by Renato Alcantara [email or web address] <ELECTRONICALLY SIGNED> By: Renato Alcantara MD, FAC 02/08/21 0842 10 10 Renato Alcantara MD, [facility] /EPI
--- NOTE | 2021-02-08 09:41 | NUR ---
INITIAL ASSESSMENT: EMMANUEL reviewed chart and spoke with nursing and attending physician. Pt was admitted from home due to hypotension. Cardiology consulted. Pt was recently discharged home from [facility] on 02/03 with [facility] . EMMANUEL met with pt at bedside. Introduced role of SW. Pt is alert/orientated x 4. Pt reports she lives at home with her . Prior to admission, pt was independent with ADLs. Pt states she has a cane to use if needed. Pt lives in a one-level house. No hx of HH or post-acute placement. Pt's PCP is Dr. Inga Lennon in [place] [employer]. Pt confirms plan to return home and resume HH services when discharged. EMMANUEL notified [facility] liaison of pt's admission. HH liaison to fax info to the HH office and will follow. EMMANUEL is following to assist as needed with discharge planning.
--- NOTE | 2021-02-08 16:57 | NUR ---
PT IS PROGRESSING TOWARDS CARE, SBP HAS BEEN IN THE LOW 100'S TODAY. DENIES ANY DIZZINESS AND CHEST PAIN. UP TO BATHRROM WITH 1 ASSIST. FALL PRECAUTIONS IN PLACVE. WILL CONTINUE TO MONITOR
--- NOTE | 2021-02-08 20:40 | NUR ---
PT RESTING IN BED, IN THE DARK. IVF INTACT. FAMILY AT BEDSIDE. PT HAS A FLAT AFFECT, MONOTONE. PT COMPLIANT WITH HS MEDS AND SNACK. PT STATED SHE WILL CALL FOR ASSISTANCE WITH AMBULATION.
[2021-02-09 04:30] VITALS: BP 113/52
[2021-02-09 07:27] VITALS: BP 137/79
[2021-02-09 10:53] LABS: HEMATOCRIT 28.4 % (37.0-47.0); HEMOGLOBIN 8.8 gm/dL (12.0-15.0); MCH 25.1 pg (26.0-34.0); MCHC 31.2 g/dL (28.0-37.0); MCV 80.6 fL (80.0-100.0); RBC 3.52 mil/uL (4.20-5.00); WBC 6.5 thou/uL (4.0-11.0)
[2021-02-09 10:55] LABS: CALCIUM 8.7 mg/dL (8.5-10.1); CREATININE 1.2 mg/dL (0.6-1.0); POTASSIUM 3.7 mmol/L (3.5-5.1)
[2021-02-09 11:46] LABS: % SATURATION 33 % (20-39); IRON 76 ug/dL (50-170); TIBC 233 ug/dL (250-450)
--- NOTE | 2021-02-09 14:12 | NUR ---
SW reviewed chart and spoke with nursing and attending physician. Pt's hemoglobin dropped. GI consulted today. Pt with positive stool occult. Pt may need an EGD/colonoscopy. Plan is for pt to discharge home and resume services with [facility] when medically stable. EMMANUEL is following to assist as needed with discharge planning.
[2021-02-09 15:32] VITALS: BP 137/81
--- NOTE | 2021-02-09 16:54 | NUR ---
PT CARE TAKEN OVER THIS AM, ALERRT AND ORIENTED X4, DENIES ANY PAIN, NAUSEA AND VOMITTING. CONTINUES TO BE ON ROOM AIR, NO SIGNS OF DISTRESS NOTED. UP TO BATHROOM WITH 1 ASSIST. FALL PRECAUTIONS IN PLACE. WILL CONTINUE TO MONITOR
[2021-02-09 19:38] VITALS: BP 129/68
[2021-02-10 04:34] VITALS: BP 121/60
[2021-02-10 05:27] LABS: HEMATOCRIT 25.6 % (37.0-47.0); HEMOGLOBIN 8.2 gm/dL (12.0-15.0); MCH 25.2 pg (26.0-34.0); MCHC 31.9 g/dL (28.0-37.0); RBC 3.24 mil/uL (4.20-5.00); RDW 22.4 % (10.5-14.5); WBC 6.3 thou/uL (4.0-11.0)
[2021-02-10 05:33] LABS: CALCIUM 8.5 mg/dL (8.5-10.1); CREATININE 1.2 mg/dL (0.6-1.0); POTASSIUM 3.6 mmol/L (3.5-5.1)
--- NOTE | 2021-02-10 06:30 | NUR ---
Pt. stated she didn't sleep much , just can't sleep. Up with SBA to bathroom to void. Denies any pain. BP has improved. Progressing towards discharge goals.
[2021-02-10 07:32] VITALS: BP 135/68
[2021-02-10 11:20] VITALS: BP 135/68
--- NOTE | 2021-02-10 11:32 | NUR ---
CARE ASSUMED THIS AM, PT ALERT AND ORIENTED X4, DENIES ANY PAIN, NAUSEA AND VOMITTING. PT ON ROOM AIR, NO SIGNS OF DISTRESS NOTED. ANTICIPATING FOR DISCHARGE TODAY. FALL PRECAUTIONS IN PLACE. DENIES ANY NEEDS DYLAN, WILL CONTINUE TO MONITOR.
[2021-02-10] MEDS ORDERED: GLUCOTROL5 MG PO (12:11)
[2021-02-10] MEDS ORDERED: ACETAMINOPHEN325 M1 PO (12:11)
[2021-02-10] MEDS ORDERED: METOPROLOL SUCC25 M1 PO (12:11)
[2021-02-10 12:58] VITALS: BP 135/68
--- NOTE | 2021-02-10 13:13 | NUR ---
DISCHARGE NOTE: SW reviewed chart and spoke with nursing and attending physicain. Pt is medically stable for discharge home today with services. [facility] liaison met with pt at bedside earlier today. Pt agreeable with discharge plan. EMMANUEL faxed finalized discharge orders/summary to [facility] . Received confirmation. SW notified HH liaison of discharge orders. Contact info for HH placed in pt's discharge summary. Pt's family to provide transportation home. No additional SW needs identified at this time, but is available to assist should needs arise.
--- NOTE | 2021-02-10 13:52 | NUR ---
PT EDUCATED ON DISCHARGE INSTRUCTION AND NEW MED INFOMATION. ALL BELONGINGS PACKED. PT DENIES ANY NEEDS. WAITING ON PT RIDE TO GET HERE
== END 2021-02-10 14:52 | disposition home health service (06) | DRG 377 ==
LOC: ER 14:55 → 3W 19:45 → EROBS 19:45 → 3W 21:03
PROVIDERS: Emergency Medicine; Nurse Practitioner; ADMIT Internal Medicine; ATTEND Internal Medicine
DX: K92.2 Gastrointestinal hemorrhage, unspecified (principal); N17.0 Acute kidney failure with tubular necrosis; E43 Unspecified severe protein-calorie malnutrition; I95.9 Hypotension, unspecified; I25.10 Atherosclerotic heart disease of native coronary artery without angina pectoris; J44.9 Chronic obstructive pulmonary disease, unspecified; I10 Essential (primary) hypertension; I48.91 Unspecified atrial fibrillation; E78.5 Hyperlipidemia, unspecified; E86.0 Dehydration; M54.9 Dorsalgia, unspecified; G89.29 Other chronic pain; R53.81 Other malaise; E86.1 Hypovolemia; E11.51 Type 2 diabetes mellitus with diabetic peripheral angiopathy without gangrene; D64.9 Anemia, unspecified; Z85.038 Personal history of other malignant neoplasm of large intestine; Z92.21 Personal history of antineoplastic chemotherapy; Z92.3 Personal history of irradiation; Z88.6 Allergy status to analgesic agent; Z88.0 Allergy status to penicillin; Z88.2 Allergy status to sulfonamides; Z88.8 Allergy status to other drugs, medicaments and biological substances; Z95.5 Presence of coronary angioplasty implant and graft; Z87.891 Personal history of nicotine dependence; Z90.49 Acquired absence of other specified parts of digestive tract
CPT/HCPCS: 10879